=== PATIENT | female | born 1985 | race American Indian/Alaskan Native ===

== ENCOUNTER 2020-02-28 18:47 | Outpatient (CLI) | payer MEDICAID | END 2020-02-28 19:15 | disposition home or self-care (01) | LOC: APU 18:47 → TRG 18:47 | PROVIDERS: ATTEND Obstetrics & Gynecology | DX: O26.893 Other specified pregnancy related conditions, third trimester (principal); Z67.41 Type O blood, Rh negative; Z3A.28 28 weeks gestation of pregnancy | CPT/HCPCS: 86850; 86900; 86901; 96372; J2790 ==

== ENCOUNTER 2020-03-31 01:53 | Outpatient (CLI) | payer MEDICAID ==
[2020-03-31 02:23] VITALS: BP 111/67
[2020-03-31] MEDS ORDERED: LACTATED RINGERS 1,000 ML IV ONE (02:23)
--- NOTE | 2020-03-31 05:15 | Event Note ---
Date: 03/31/20 Nurse called me with pt c/o leakage of fluid at 34+ weeks . ROM plus negative and BPP wnl with CHAKA 8. pt denies vaginal itching. Pt given labor instructions with a reactive NST in triage to follow up in clinic in 1wk.
--- NOTE | 2020-03-31 05:36 | Ultrasound Report ---
ULTRASOUND BIOPHYSICAL PROFILE INDICATION / CLINICAL INFORMATION: CHAKA. COMPARISON: None available. FINDINGS: BREATHING MOVEMENT = 2 GROSS BODY MOVEMENT = 2 TONE = 2 QUALITATIVE AMNIOTIC FLUID VOLUME = 2 TOTAL BIOPHYSICAL SCORE = 8/8 AMNIOTIC FLUID INDEX (cm) = 8.4 cm PRESENTATION: Cephalic. HEART RATE (beats per minute): 130 Additional findings: Femur length measures 6.6 cm, corresponding to gestational age of 34 weeks 0 day s. IMPRESSION: 1. Single live intrauterine . biophysical profile = 8/8 2. CHAKA of 8.4 cm. Signer Name: Darrick Mtz MD Signed: 03/31/2020 5:32 AM Workstation Name: [id number]
== END 2020-03-31 05:23 | disposition home or self-care (01) ==
LOC: TRG 01:53 → APU 03:19 → TRG 05:23
PROVIDERS: ATTEND Obstetrics & Gynecology
DX: O42.913 Preterm premature rupture of membranes, unspecified as to length of time between rupture and onset of labor, third trimester (principal); Z3A.34 34 weeks gestation of pregnancy
CPT/HCPCS: 36415; 59025; 76815; 76819; 84112